=== PATIENT | male | born 1985 | race Caucasian/White ===

== ENCOUNTER 2018-09-18 14:12 | Inpatient (IN) | payer MEDICAID ==
[~2018-09-18] VITALS: Ht 165.1 cm; Wt 63.5 kg
[2018-09-18 14:17] VITALS: BP 123/77
--- NOTE | 2018-09-18 14:18 | NUR ---
PT BIB [facility] TO ER BED 5
--- NOTE | 2018-09-18 14:31 | NUR ---
BROUGHT IN BY EMS FROM PT'S BROTHER IN [employer] FAMILY STATED PT BEHAVING AGGITATED, ADMITS TO HEROIN AND METHAMPHETAMINE USE TODAY. NO TRAUMA NOTED---LUE WOUND NOTED, PT ADMITS TO IVDA PATIENT STATES PAIN OF 0/10 AT THIS TIME; VSS; PATIENT POSITIONED FOR COMFORT; HOB ELEVATED; BEDRAILS UP X2; BED DOWN. ER MD MADE AWARE OF PT STATUS.
--- NOTE | 2018-09-18 15:59 | NUR ---
PATIENTS SISTER WILVER SOW CALLED REGARDING HER BROTHERS CONDITION. EXPLAINED TO HER THE CURRENT CONDITION OF HER BROTHER,JOHNNY WITH UNDERSTANDING.DR. PALOMINO MADE AWARE AND PRIMARY NURSE.
--- NOTE | 2018-09-18 16:00 | NUR ---
PT CURRENTLY EATING. THROWING BREAD AT NURSING STATION.
--- NOTE | 2018-09-18 17:57 | NUR ---
PT REFUSED EKG, AN RN MADE AWARE
[2018-09-18 18:21] LABS: BASOPHILS # (AUTO) 0.2 K/uL (0.00-0.22); BASOPHILS % (AUTO) 1.4 % (0.0-2.0); EOSINOPHILS # (AUTO) 0.1 K/uL (0-0.4); EOSINOPHILS % (AUTO) 0.6 % (0.0-4.0); HEMATOCRIT 28.3 % (36-52); HEMOGLOBIN 8.7 g/dL (12.0-18.0); LYMPHOCYTES # (AUTO) 2.4 K/uL (2.0-11.5); LYMPHOCYTES % (AUTO) 17.4 % (20.5-51.1); MEAN CORPUSCULAR HEMOGLOBIN 23 pg (27-31); MEAN CORPUSCULAR HGB CONC 31 g/dL (33-37); MEAN CORPUSCULAR VOLUME 73.6 fL (80-94); MONOCYTES # (AUTO) 0.9 K/uL (0.8-1.0); MONOCYTES % (AUTO) 6.4 % (1.7-9.3); NEUTROPHILS # (AUTO) 10.2 K/uL (1.8-7.7); NEUTROPHILS % (AUTO) 74.2 % (42.2-75.2); PLATELET COUNT (AUTO) 408 K/uL (140-450); RED BLOOD CELL COUNT(AUTO) 3.85 MIL/uL (4.20-6.10); RED CELL DISTRIBUTION WIDTH 18.9 % (11.6-13.7); WHITE BLOOD COUNT (AUTO) 13.8 K/uL (4.8-10.8)
[2018-09-18 18:28] LABS: BARBITURATE, URINE NEG. ng/ml (NEG <=200); BENZODIAZEPINE, URINE NEG. ng/mL (NEG <=200); CANNABINOID, URINE POS. ng/mL (NEG <=50); COCAINE, URINE NEG. ng/mL (NEG <=300); OPIATE, URINE NEG. ng/mL (NEG <=2000); PHENCYCLIDINE SCREEN,URINE NEG. ng/mL (NEG <=25)
[2018-09-18 18:29] LABS: ANION GAP 10.7 (8-16); CARBON DIOXIDE 29.4 mmol/L (21-32); CHLORIDE 103 mmol/L (98-107); GFR ARICAN-AMERICAN 110 mL/min (>90); GLUCOSE 83 mg/dL (74-106); POTASSIUM 4.1 mmol/L (3.5-5.1); SODIUM SERUM 139 mmol/L (136-145); UREA NITROGEN, BLOOD 25 mg/dL (7-18)
[2018-09-18 18:36] LABS: ALBUMIN 3.7 g/dL (3.4-5.0); ASPARTATE AMINOTRANSFERASE 39 U/L (15-37); TOTAL BILIRUBIN 0.3 mg/dL (0.0-1.0)
[2018-09-18 18:37] LABS: SALICYLATE < 2.8 mg/dL (2.8-20.0)
[2018-09-18 18:38] LABS: ACETAMINOPHEN < 0.5 ug/ml (10-30)
--- NOTE | 2018-09-18 18:46 | NUR ---
TELEPSYCH CONSULT REQUEST SUBMITTED REQUESTED BY DR PALOMINO
--- NOTE | 2018-09-18 19:01 | NUR ---
SPOKE WITH DR. RAMÍREZ. GAVE REPORT, WILL BE SPEAKING WITH PT IN A MOMENT.
--- NOTE | 2018-09-18 19:03 | NUR ---
TELEPSYCH WITH DR RAMÍREZ STARTED
--- NOTE | 2018-09-18 19:07 | NUR ---
ASSUMED CARE FROM MONIE EPPERSON
--- NOTE | 2018-09-18 19:09 | NUR ---
SPOKE WITH DR. RAMÍREZ. RECOMMENDS 5150 AND RE-EVALUATE IN A FEW HRS, MEDICATION COCKTAIL, POSSIBLY FIND PLACEMENT IF HOLD CANNOT BE BROKEN. CHARGE NURSE WAS MADE AWARE. AWAITING TELEPSYCH REPORT.
[2018-09-18] MEDS ORDERED: ZIPRASIDONE MESYLATE 20 MG/ML VIAL IM ONE (19:15)
[2018-09-18] MEDS ORDERED: diphenhydrAMINE 50 MG/ML VIAL IM ONE (19:15)
[2018-09-18] MEDS ORDERED: LORazepam 2 MG/ML VIAL IM ONE (19:15)
--- NOTE | 2018-09-18 19:15 | NUR ---
PT DISROBED COMPLETELY AND PLACED IN HOSPITAL GOWN, BUT REFUSED SLIPPERS. CLOTHES AND BELONGINGS PLACED IN BAG AND HANDED TO SECURITY FOR SAFEKEEPING. ALL BEDSIDE EQUIPMENT REMOVED AND CABINETS LOCKED OR SECURED IN PLACE. SITTER PLACED AT BEDSIDE FOR OBSERVATION
[2018-09-18] MEDS ORDERED: WATER STERILE 10 ML MC ONE (19:25)
--- NOTE | 2018-09-18 19:50 | NUR ---
EKG PERFORMED AT BEDSIDE. PT COVERED IN GOWN AND BLANKET DURING PROCEDURE.
--- NOTE | 2018-09-18 19:56 | NUR ---
PT RESTING AT THIS TIME
--- NOTE | 2018-09-18 21:00 | NUR ---
PT SLEEPING, VSS. SITTER AT BEDSIDE. WILL CONTINUE TO MONITOR.
--- NOTE | 2018-09-19 00:16 | NUR ---
The following psych facilities were called for bed placement, unfortunatley there are no beds available. [facility], s/w [place], not accepting packets at this time. [facility], s/w [place], packet was sent for review. [facility], s/w [place]lee/[place]. [facility], s/w [place], not accepting packets at this time. She requested if we can fax packet next shift around 11am when they have discharges. [facility], s/w [place], they are short staffed and can not accept any more patients. [facility], s/w [place], packet was faxed for review.
--- NOTE | 2018-09-19 00:38 | NUR ---
PT SLEEPING, SITTER AT BEDSIDE. VSS.
[2018-09-19] MEDS ORDERED: NACL 0.9% 1,000 ML IV SCH (01:06)
[2018-09-19] MEDS ORDERED: LORazepam 2 MG/ML VIAL IM/IVP PRN (01:10)
[2018-09-19] MEDS ORDERED: ONDANSETRON 4 MG/2 ML VIAL IM/IVP PRN (01:10)
[2018-09-19] MEDS ORDERED: KETOROLAC 15 MG/ML VIAL IVP PRN (01:10)
[2018-09-19] MEDS ORDERED: DOCUSATE SODIUM 100 MG GELCAP PO PRN (01:10)
[2018-09-19] MEDS ORDERED: ZOLPIDEM 5 MG TAB PO PRN (01:10)
--- NOTE | 2018-09-19 01:33 | NUR ---
Patient will be admitted to care of DR HIGGINS. Admited to [facility]. Will go to [id number]. Belongings list completed. Report to MONIE SCOTT.
[2018-09-19 01:40] VITALS: BP 94/54
--- NOTE | 2018-09-19 01:40 | NUR ---
REPORT RECEIVED FROM ED NURSE AT BEDSIDE. PT IN STABLE CONDITION. AAOX4. BUT DROWSY. INTRODUCED SELF TO PT. NO COMPLAINTS OF PAIN. NO SOB. AFEBRILE. MRSA SWAB DONE. IV SITE R AC 18G RUNNING NS@60ML/HR PATENT AND INTACT. SKIN WARM, DRY, AND INTACT WITH NO OPEN WOUNDS. PT IS A 51/50 HOLD 1:1 SITTER. WRIST BAND APPLIED. BED LOCKED IN LOW POSITION. SAFETY PRECAUTIONS IN PLACE. ALL NEEDS MET AT THIS TIME. WILL CONTINUE TO MONITOR.
[2018-09-19 03:32] LABS: ALBUMIN 3.2 g/dL (3.4-5.0); ANION GAP 11.6 (8-16); CARBON DIOXIDE 28.1 mmol/L (21-32); CREATININE 0.9 mg/dL (0.7-1.3); POTASSIUM 3.7 mmol/L (3.5-5.1); TOTAL BILIRUBIN 0.4 mg/dL (0.0-1.0)
[2018-09-19 03:41] LABS: PROTHROMBIN TIME 10.2 secs (10.8-13.4)
--- NOTE | 2018-09-19 04:00 | NUR ---
RADIOLOGY IN FOR CHEST XRAY. PT COOPERATIVE.
[2018-09-19 04:20] LABS: FREE T4 (FREE THYROXINE) 1.66 ng/dL (0.76-1.46); MAGNESIUM 1.9 mg/dL (1.8-2.4); PHOSPHORUS 4.9 mg/dL (2.5-4.9); THYROID STIMULATING HORMONE 0.88 uIU/mL (0.34-3.74)
--- NOTE | 2018-09-19 04:58 | NUR ---
LACTULOSE GIVEN PO. PT TOLERATED WELL.
[2018-09-19] MEDS ORDERED: LACTULOSE 20 GM/30 ML UDC PO SCH (05:00)
--- NOTE | 2018-09-19 07:00 | NUR ---
REPORT GIVEN TO AM NURSE AT BEDSIDE. PT IN STABLE CONDITION.
--- NOTE | 2018-09-19 07:15 | NUR ---
RECEIVED PT REPORT FROM METAL HARDENER NURSE. PT IS ASLEEP IN BED. SITTER AT BEDSIDE. NO S/S OF DISTRESS, AGITATION, SOB, OR C/O PAIN AT THIS TIME. IV SITE NOTED ON THE R AC, 20 GAUGE. PT IS ON ROOM AIR. PT HAS AN AREA OF OPEN SKIN GOING ALONG THE ANTERIOR L ARM, PT STATES IT GOT INFECTED FROM IV DRUG INJECTIONS. PICTURE TAKEN, MD AND CHARGE NURSE NOTIFIED. WILL CONTINUE TO MONITOR.
[2018-09-19 08:00] VITALS: BP 95/57
[2018-09-19 08:16] LABS: CHOL/HDL RATIO 1.5 (1-4.5)
--- NOTE | 2018-09-19 08:46 | NUR ---
PATIENT HAS BEEN SCREENED AND CATEGORIZED LOW NUTRITION RISK. PATIENT WILL BE SEEN WITHIN 7 DAYS OF ADMISSION. 09/25/[address]
[2018-09-19] MEDS ORDERED: QUEtiapine FUMARATE 25 MG TAB PO SCH (09:00)
--- NOTE | 2018-09-19 09:00 | NUR ---
PT ATE 100% OF HIS BREAKFAST, AND REQUESTED A SANDWICH BECAUSE HE IS STILL HUNGRY. NO S/S OF ACUTE DISTRESS OR C/O PAIN. WILL CONTINUE TO MONITOR. SITTER AT BEDSIDE.
--- NOTE | 2018-09-19 09:01 | NUR ---
PT TOOK HIS SCHEDULED AM SEROQUEL. LUE CLEANED WITH NS AND WRAPPED WITH CLEAN DRY GAUZE. PT IS COOPERATIVE, BUT VERBALLY INSULTING TO STAFF. SITTER AT BEDSIDE. WILL CONTINUE TO MONITOR.
--- NOTE | 2018-09-19 09:34 | NUR ---
PT EVALUATED BY THE WOUND CARE NURSE AT THIS TIME.
--- NOTE | 2018-09-19 10:10 | NUR ---
WOUND CARE EVALUATION NOTES: REASON FOR EVALUATION: LEFT ARM WOUND WOUND ASSESSMENT DONE ON THIS 42 Y/O FEMALE PATIENT TO [facility], WITH INITIAL DIAGNOSIS OF DISORDER OF AMS. PER PT. LEFT ARM WOUND STARTED WITH NEEDLE INJECTION. LABS ARE WBC 13.8, H/H 8.7/28.3, GLUCOSE 91 AND ALBUMIN 3.2. PATIENT IS AWAKE, ORIENTED TO PLACE ONLY, FORGETFUL AND VERY RESTLESS, REFUSE HEAD TO TOE SKIN ASSESSMENT. INITIAL PLAN OF CARE DISCUSSED WITH PRIMARY RN AND PT. PT. ABLE TO VERBALIZE UNDERSTANDING BUT NEED REINFORCEMENT ON WOUND CARE TEACHING. INTEGUMENTARY: -LEFT UPPER ARM SKIN ALTERATION WITH PARTIAL THICKNESS LOSS OF DERMIS, 20X5X0.1 CM WOUND BED IS RED, MOIST, NO ODOR, WOUND EDGE IRREGULAR SHAPE WITH THIN SCAR FORMING, CLARICE WOUND SKIN INTACT. RECOMMENDATIONS: -CLEANSE LEFT UPPER ARM WOUND WITH NS. PAT DRY , APPLY XEROFORM DRESSING, WRAP WITH KERLIX ROLLS AND SECURE WITH TAPE, CHANGE DRESSING Q72 HOUR AND PRN IF SOILING -ASSESS AND MONITOR SKIN CONDITION DURING POSITION CHANGE -KEEP SKIN CLEAN AND DRY AT ALL TIMES. RECOMMENDATIONS DISCUSSED WITH PRIMARY RN AND RESIDENT PHYSICIAN, DR. HUGHES PLEASE CONTACT WOUND CARE NURSE FOR ANY QUESTIONS AND CHANGES IN SKIN CONDITION.
--- NOTE | 2018-09-19 12:18 | NUR ---
CM NOTE FAXED INQUIRY TO [facility] [phone], LINDA OF [facility] AWARE PH# [phone]
--- NOTE | 2018-09-19 12:30 | NUR ---
[facility] aware of need for psych placement. Referral faxed to [facility] [place], [facility] and no beds available at this time. Will continue to follow up through out shift.
--- NOTE | 2018-09-19 12:30 | NUR ---
Social Workers Notes: I met with patient on the attempt to meet for a screen; Patient was uncooperative and rude to sitter and then also to these data analyst report writer when I began to asked questions Patient, Yelled profanity Patient start to scream " I dont want to talk or any resources I just want you to pay for me to get my licence from [employer]. I ended screen and left the room as Patient was been talk to by staff due to his behaviors.
--- NOTE | 2018-09-19 12:40 | NUR ---
PT ATE ALL OF HIS LUNCH. NO S/S OF DISTRESS NOTED, SITTING QUIETLY IN BED. IV IS SALINE LOCKED. SITTER AT BEDSIDE, WILL CONTINUE TO MONITOR.
--- NOTE | 2018-09-19 13:22 | NUR ---
MD IS AWARE OF PT'S ABSCESS ON THE BACK OF HIS HEAD.
[2018-09-19] MEDS ORDERED: HALOPERIDOL 5 MG TAB PO PRN (13:55)
[2018-09-19] MEDS ORDERED: LORazepam 1 MG TAB PO PRN (13:55)
[2018-09-19] MEDS ORDERED: OLANZapine 5 MG TAB PO SCH (14:15)
--- NOTE | 2018-09-19 14:45 | NUR ---
PT PULLED OUT HIS IV Addendum: 09/19/18 at 1731 by Mikayla Arambula RN IS AWARE. SAYS NO NEED FOR NEW IV SITE SINCE PT IS NOT GETTING IV FLUIDS
[2018-09-19 16:00] VITALS: BP 111/70
--- NOTE | 2018-09-19 17:31 | NUR ---
PT SLEEPING AT THIS TIME. NO S/S OF ACUTE DISTRESS
--- NOTE | 2018-09-19 19:35 | NUR ---
PT ENDORSED TO CERTIFIED MEDICATION TECHNICIAN IN STABLE CONDITION.
--- NOTE | 2018-09-19 19:36 | NUR ---
RECD. RESTING IN BED, AWAKE, A/OX3. RESPIRATION EVEN AND UNLABORED. DENIES SUICIDAL THOUGHTS. RUDE WHEN ANSWERING QUESTIONS. PLAN OF CARE FOR THE SHIFT DISCUSSED. SEEMS NOT TO CARE. CONTINUED SLEEPING. 1:1 SITTER AT THE DOOR MONITORING PATIENT. DENIES PAIN 0/10.
--- NOTE | 2018-09-19 20:00 | NUR ---
CARE PLAN REVIEWED WITH DEBRA HARRY AND WILL CONTINUE WITH PLAN OF CARE.
[2018-09-19] MEDS: OLANZapine 5 MG TAB PO SCH (21:57)
--- NOTE | 2018-09-19 21:57 | NUR ---
WITH ANXIETY, MEDICATED WITH ATIVAN PO ORDERED.
[2018-09-20] VITALS: BP 101/69
--- NOTE | 2018-09-20 | NUR ---
SEEPING COMFORTABLY IN BED.
--- NOTE | 2018-09-20 01:00 | NUR ---
RESTING IN BED, REFUSED WOUND AT THE LEFT BACK NECK TO BE TOUCHED.
--- NOTE | 2018-09-20 01:11 | NUR ---
Notified Carrie LOMAX pts nurse , at this time there are no beds available for placement , and also made aware that pt is still awaiting for MRSA result.will endorsed to AM shift to continue to look for placement.
[2018-09-20 05:58] LABS: BASOPHILS % (AUTO) 0.6 % (0.0-2.0); EOSINOPHILS # (AUTO) 0.2 K/uL (0-0.4); EOSINOPHILS % (AUTO) 2.3 % (0.0-4.0); HEMATOCRIT 28.8 % (36-52); HEMOGLOBIN 8.9 g/dL (12.0-18.0); LYMPHOCYTES # (AUTO) 2.8 K/uL (2.0-11.5); LYMPHOCYTES % (AUTO) 34.8 % (20.5-51.1); MEAN CORPUSCULAR HEMOGLOBIN 23 pg (27-31); MEAN CORPUSCULAR HGB CONC 31 g/dL (33-37); MEAN CORPUSCULAR VOLUME 73.7 fL (80-94); MONOCYTES # (AUTO) 0.8 K/uL (0.8-1.0); NEUTROPHILS # (AUTO) 4.2 K/uL (1.8-7.7); NEUTROPHILS % (AUTO) 52.3 % (42.2-75.2); PLATELET COUNT (AUTO) 367 K/uL (140-450); RED BLOOD CELL COUNT(AUTO) 3.91 MIL/uL (4.20-6.10); RED CELL DISTRIBUTION WIDTH 18.7 % (11.6-13.7); WHITE BLOOD COUNT (AUTO) 7.9 K/uL (4.8-10.8)
--- NOTE | 2018-09-20 06:00 | NUR ---
ALLOWED STONE DRILLER HELPER TO DO BLOOD DRAW. WENT BACK TO SLEEP.
[2018-09-20 06:38] LABS: ANION GAP 12.3 (8-16); CREATININE 0.9 mg/dL (0.7-1.3); POTASSIUM 4.3 mmol/L (3.5-5.1)
[2018-09-20 06:42] LABS: PHOSPHORUS 4.6 mg/dL (2.5-4.9)
--- NOTE | 2018-09-20 07:10 | NUR ---
ABLE TO SLEEP WELL. CONDITION REMAIN STABLE. ENDORSED TO AM NURSE FOR CONTINUITY OF CARE.
[2018-09-20 08:00] VITALS: BP 101/65
--- NOTE | 2018-09-20 09:50 | NUR ---
REPORT GIVEN TO MONIE PETERSON. PT STABLE AND SLEEPING ON HIS BED AT THIS TIME. NO SIG OF DISTRESS NOTED.
--- NOTE | 2018-09-20 09:50 | NUR ---
RECEIVED BEDSIDE REPORT FROM BERTHA LOMAX. PT IS SLEEPING IN BED, AROUSABLE BY VOICE. AOX3. NO C/O PAIN OR DISCOMFORT. PT IS CALM AND COOPERATIVE AT THIS TIME. NO S/S DISTRESS, RESPIRATIONS EVEN AND UNLABORED. NO IV SITE, PT REFUSING IV ACCESS. 1:1 SITTER FOR SUICIDE PREVENTION. ALL OTHER SAFETY PRECAUTIONS IN PLACE, WILL CONTINUE TO MONITOR. Addendum: 09/20/18 at 1023 by Cherie García Meng, RN ABSCESS ON BACK OF HEAD PER BERTHA LOMAX. SKIN OTHERWISE INTACT. PT REFUSING SKIN ASSESSMENT.
[2018-09-20] MEDS: OLANZapine 5 MG TAB PO SCH (10:03)
[2018-09-20] MEDS: HALOPERIDOL 5 MG TAB PO SCH (10:03)
[2018-09-20] MEDS: SULFAMETH/TRIMETH DS 800/160MG 1 TAB PO SCH ×2 (10:04→20:07)
--- NOTE | 2018-09-20 10:08 | NUR ---
PT IS COOPERATIVE WHEN TAKE SCHEDULED ORAL MEDICATIONS. WENT BACK TO SLEEP AFTER TAKING ORAL PILLS.
--- NOTE | 2018-09-20 12:02 | NUR ---
PT SLEEPING IN BED, RESPIRATIONS EVEN AND UNLABORED. NO S/S DISTRESS. 1:1 REMAINS AT BEDSIDE. WILL CONTINUE TO MONITOR.
[2018-09-20] MEDS: QUEtiapine FUMARATE 25 MG TAB PO SCH ×2 (12:42→16:51)
--- NOTE | 2018-09-20 12:44 | NUR ---
PATIENT IS COOPERATIVE AND TOOK SCHEDULED 1300 MEDICATION. REFUSED TO HAVE KERLIX REMOVED ON LEFT ARM FOR WOUND EVAL. ALLOWED FOR WOUND EVAL OF ABSCESS ON THE BACK OF HEAD BUT REFUSED NEW DRESSING/REINFORCEMENT OF EXISITING DRESSING. STATES "I'M GOING TO SLEEP NOW".
--- NOTE | 2018-09-20 15:33 | NUR ---
PT SLEEPING IN BED, AROUSABLE BY VOICE. VITALS STABLE. NO C/O PAIN OR DISCOMFORT. ALL SAFETY PRECAUTIONS IN PLACE, WILL CONTINUE TO MONITOR.
[2018-09-20 16:00] VITALS: BP 100/66
--- NOTE | 2018-09-20 16:51 | NUR ---
ADMINISTERED SCHEDULED SEROQUEL. PT COOPERATIVE. ALL SAFETY PRECAUTIONS IN PLACE, WILL CONTINUE TO MONITOR.
--- NOTE | 2018-09-20 19:07 | NUR ---
ENDORSED POC TO DIRECTOR OF RELIGIOUS LIFE RN AT BEDSIDE. PT IN STABLE CONDITION.
--- NOTE | 2018-09-20 19:08 | NUR ---
REPORT RECEIVED FROM AM NURSE AT BEDSIDE. PT IN STABLE CONDITION. AAOX2. INTRODUCED SELF TO PT. PT IS A 51/50 HOLD 1:1 SITTER. NO COMPLAINTS OF PAIN. NO SOB. AFEBRILE. PT HAD PULLED OUT HIS IV. NO IV SITE AT THIS TIME. SKIN WARM, DRY, AND INTACT WITH NO OPEN WOUNDS. BED LOCKED IN LOW POSITION. CALL BEEBE WITHIN REACH. SAFETY PRECAUTIONS IN PLACE. ALL NEEDS MET AT THIS TIME. WILL CONTINUE TO MONITOR.
--- NOTE | 2018-09-20 20:07 | NUR ---
BACTRIM GIVEN PO. PT TOLERATED WELL.
--- NOTE | 2018-09-20 20:19 | NUR ---
Called the following [facility] facilities for bed placement. [facility], s/w [place], no beds available. [facility], s/w [place], no beds available. [facility], s/w Amanda, no beds available. [facility], s/w Jesus, no beds available. [facility], s/w Cele, no beds available. [facility], possible bed, packet was faxed. [facility], s/w [place], no beds available. [facility], s/w Jamar, no beds available.
--- NOTE | 2018-09-20 23:30 | NUR ---
PT SLEEPING COMFORTABLY IN BED. NO S/S OF DISTRESS NOTED. WILL CONTINUE TO MONITOR.
[2018-09-21] VITALS: BP 93/41
--- NOTE | 2018-09-21 01:45 | NUR ---
PT SLEEPING COMFORTABLY IN BED. NO S/S OF DISTRESS NOTED. ALL NEEDS MET AT THIS TIME. WILL CONTINUE TO MONITOR.
--- NOTE | 2018-09-21 03:30 | NUR ---
PT SLEEPING SUPINE IN BED BUT AROUSEABLE. NO S/S OF DISTRESS NOTED. RESPIRATIONS EVEN, UNLABORED, AND WNL. WILL CONTINUE TO MONITOR.
--- NOTE | 2018-09-21 05:15 | NUR ---
PT SLEEPING COMFORTABLY. NO S/S OF DISTRESS NOTED. WILL CONTINUE TO MONITOR.
[2018-09-21 06:19] LABS: BASOPHILS # (AUTO) 0.1 K/uL (0.00-0.22); BASOPHILS % (AUTO) 0.6 % (0.0-2.0); EOSINOPHILS # (AUTO) 0.2 K/uL (0-0.4); EOSINOPHILS % (AUTO) 2.6 % (0.0-4.0); HEMATOCRIT 28.2 % (36-52); HEMOGLOBIN 8.9 g/dL (12.0-18.0); LYMPHOCYTES # (AUTO) 2.9 K/uL (2.0-11.5); LYMPHOCYTES % (AUTO) 32.3 % (20.5-51.1); MEAN CORPUSCULAR HEMOGLOBIN 23 pg (27-31); MEAN CORPUSCULAR HGB CONC 32 g/dL (33-37); MEAN CORPUSCULAR VOLUME 73.1 fL (80-94); MONOCYTES # (AUTO) 0.8 K/uL (0.8-1.0); MONOCYTES % (AUTO) 8.8 % (1.7-9.3); NEUTROPHILS # (AUTO) 5.1 K/uL (1.8-7.7); NEUTROPHILS % (AUTO) 55.7 % (42.2-75.2); PLATELET COUNT (AUTO) 362 K/uL (140-450); RED BLOOD CELL COUNT(AUTO) 3.86 MIL/uL (4.20-6.10); RED CELL DISTRIBUTION WIDTH 18.6 % (11.6-13.7); WHITE BLOOD COUNT (AUTO) 9.1 K/uL (4.8-10.8)
--- NOTE | 2018-09-21 07:05 | NUR ---
REPORT GIVEN TO AM NURSE AT BEDSIDE. PT IN STABLE CONDITION.
--- NOTE | 2018-09-21 07:11 | NUR ---
RECEIVED BEDSIDE REPORT FROM STRETCHER OPERATOR RN. PT IN STABLE CONDITION. SLEEPING IN BED, AROUSABLE BY VOICE. AAOX2. ON 5150 HOLD WITH 1:1 SITTER AT BEDSIDE. DENIES PAIN AND DISCOMFORT. PT IS DROWSY. COOPERATIVE BUT UNWILLING TO CONVERSE; WANTS TO GO BACK TO SLEEP. NO S/S DISTRESS. OPEN WOUND ON LUE COVERED WITH KERLIX ROLL. BED LOCKED IN LOW POSITION. CALL BEEBE WITHIN REACH. SAFETY PRECAUTIONS IN PLACE. ALL NEEDS MET AT THIS TIME. WILL CONTINUE TO MONITOR.
[2018-09-21 07:36] LABS: MAGNESIUM 1.8 mg/dL (1.8-2.4); PHOSPHORUS 4.3 mg/dL (2.5-4.9)
[2018-09-21 08:00] VITALS: BP 116/44
[2018-09-21] MEDS: QUEtiapine FUMARATE 25 MG TAB PO SCH (08:23)
[2018-09-21] MEDS: HALOPERIDOL 5 MG TAB PO SCH (08:23)
[2018-09-21] MEDS: SULFAMETH/TRIMETH DS 800/160MG 1 TAB PO SCH (08:23)
--- NOTE | 2018-09-21 08:24 | NUR ---
PER DR. HUGHES, PT IS CLEARED FOR DISCHARGE. NOTIFIED SECURITY TO BRING PERSONAL BELONGINGS TO UNIT. WILL PLACE PERSONAL BELONGINGS ASIDE UNTIL PT IS READY TO LEAVE HOSPITAL.
[2018-09-21] MEDS ORDERED: QUET25TA46 PO (08:28)
[2018-09-21] MEDS ORDERED: SULF1TAB12 PO (08:28)
--- NOTE | 2018-09-21 09:30 | NUR ---
ASKED PT TO IF KERLIX ROLL CAN BE REMOVED FROM LEFT ARM FOR WOUND PHOTO. PT REFUSED. PT AGREED TO HAVE PHOTO TAKEN OF ABSCESS ON BACK OF HEAD/NECK BUT REFUSED TO HAVE THE DRESSING TAKE OFF. YELLED OUT WHEN DRESSING WAS MOVED. DRESSING LEFT IN PLACE AND PHOTO TAKEN WITH DRESSING OBSTRUCTING PART OF ABSCESS. DISCHARGE TEACHING AND NEW RX TEACHING GIVEN BUT PT IS UNINTERESTED. PT SIGNED ALL DISCHARGE PAPERWORK BUT BECAME INCREASINGLY AGITATED WITH THE SIGNING. ASKED IF PT WOULD LIKE TO RECEIVE FLU VACCINE AND PATIENT YELLED OUT "NO", LAID BACK IN BED, AND COVERED HIS BED WITH BLANKET.
--- NOTE | 2018-09-21 09:35 | NUR ---
NOTIFIED DEANDRA GU [phone] THAT PATIENT IS READY FOR DISCHARGE IN [facility] ROOM 109[address]. [facility], NO PD OFFICERS ARE AVAILABLE RIGHT NOW. ETA UNKNOWN.
--- NOTE | 2018-09-21 10:30 | NUR ---
DEANDRA PD HAS TAKEN PATIENT. PD PROVIDED WITH MEDICAL AND PSYCH CLEARANCE NOTE. ALL PERSONAL BELONGINGS GIVEN TO PT. DISCHARGE PAPERWORK INCLUDING NEW RX GIVEN TO PT.
[2018-09-21 11:08] LABS: ANION GAP 15.4 (8-16); CARBON DIOXIDE 23.8 mmol/L (21-32); CREATININE 0.9 mg/dL (0.7-1.3); POTASSIUM 4.2 mmol/L (3.5-5.1)
[2018-09-21 12:33] LABS: FERRITIN 8 ng/mL (30-400); TRANSFERRIN 269 mg/dL (200-370)
== END 2018-09-21 10:30 | DRG 469 ==
LOC: MED 14:12 → MTU 09-19 01:06
PROVIDERS: ADMIT General Practice; ATTEND General Practice
DX: N17.0 Acute kidney failure with tubular necrosis (principal); G93.41 Metabolic encephalopathy; F25.9 Schizoaffective disorder, unspecified; L02.11 Cutaneous abscess of neck; R45.851 Suicidal ideations; F19.10 Other psychoactive substance abuse, uncomplicated; D50.9 Iron deficiency anemia, unspecified; E86.0 Dehydration; Z88.6 Allergy status to analgesic agent; Z83.3 Family history of diabetes mellitus; Z82.3 Family history of stroke; Z82.5 Family history of asthma and other chronic lower respiratory diseases; Y92.89 Other specified places as the place of occurrence of the external cause
CPT/HCPCS: 36415; 71045; 80048; 80053; 80305; 82140; 82150; 82728; 83036; 83540; 83690; 83735; 83880; 84100; 84134; 84439; 84443; 84484; 85025; 85045; 85610; 85730; 87081; 93005; 96372; 99285; G0480; G0482; J1200; J1630; J2060; J3486; J7030; Q0092

== ENCOUNTER 2021-11-28 07:15 | Day surgery (SDC) | payer OTHER, SELFPAY ==
[~2021-11-28] VITALS: Ht 180.3 cm; Wt 95.3 kg
[~2021-11-28 07:15] MED LIST: QUET25TA46 PO; SULF-954 PO
[2021-11-28] MEDS ORDERED: LIDOCAINE 2% 100 MG/5 ML UJET TP ONE (09:47)
[2021-11-28] MEDS ORDERED: fentaNYL citrate 0.05 MG/ML VIAL ONE (09:47)
[2021-11-28] MEDS ORDERED: fentaNYL citrate 0.05 MG/ML VIAL IVP ONE (10:15)
== END 2021-11-28 10:45 | disposition home or self-care (01) ==
LOC: MDS 07:15 → MMU 07:15 → MDS 10:45
PROVIDERS: ATTEND Internal Medicine Gastroenterology
DX: K62.5 Hemorrhage of anus and rectum (principal); Z80.0 Family history of malignant neoplasm of digestive organs; Z20.822 Contact with and (suspected) exposure to COVID-19; Z90.49 Acquired absence of other specified parts of digestive tract
CPT/HCPCS: 45378; 87426; J3010